=== PATIENT | female | born 1990 | race Caucasian/White ===

== ENCOUNTER 2016-08-05 17:11 | Emergency (ER) | payer MEDICAID ==
[2016-08-05 17:16] VITALS: BP 115/72
== END 2016-08-05 18:37 | disposition home or self-care (01) ==
LOC: ED 17:11
DX: H65.92 Unspecified nonsuppurative otitis media, left ear (principal); Z79.2 Long term (current) use of antibiotics; Z88.2 Allergy status to sulfonamides; Z98.890 Other specified postprocedural states
CPT/HCPCS: J2930